=== PATIENT | female | born 1965 | race Caucasian/White ===

== ENCOUNTER 2018-05-17 18:00 | Inpatient (IN) | payer SELFPAY ==
[~2018-05-17] VITALS: Ht 162.6 cm; Wt 59.1 kg
[~2018-05-17 18:00] MED LIST: ADVIL200 MG PO; COREG 3.1253.125 MG; HYDROCODONE-APA1 TAB PO; IBUPROFEN600 MG PO; PREVACID30 MG PO; ULTRAM50 MG PO; XANAX0.25 MG PO
[2018-05-17 19:39] LABS: BASOPHILS 0.6 % (0-2); EOSINOPHILS 1.6 % (0-7); HEMATOCRIT 37.6 % (36.0-48.0); HEMOGLOBIN 12.9 g/dL (12-16); IMMATURE GRANULOCYTES 0.3 % (0-5); LYMPHOCYTES 43.8 % (15-50); MCH 31.5 pg (26.0-34.0); MCHC 34.3 g/dL (31.0-37.0); MCV 91.7 fL (80.0-100.0); MEAN PLATELET VOLUME 9.8 fL (7.4-10.4); MONOCYTES 6.8 % (2-11); NEUTROPHILS 46.9 % (40-80); PLATELET COUNT 256 10x3/uL (130-400); RDW 12.8 % (11.5-14.5)
[2018-05-17 19:47] LABS: ALBUMIN 3.3 g/dL (3.4-5.0); ALKALINE PHOSPHATASE 97 U/L (46-116); ALT (SGPT) 27 U/L (10-68); BILIRUBIN - TOTAL 0.09 mg/dL (0.2-1.3); CALC OSMOLALITY 279 mosm/kg (275-300); CARBON DIOXIDE 23.7 mmol/L (21.0-32.0); CHLORIDE - SERUM 106 mmol/L (98-107); CREATININE - SERUM 0.7 mg/dL (0.6-1.3); GLUCOSE 98 mg/dL (74-106); POTASSIUM - SERUM 3.8 mmol/L (3.5-5.1); PROTEIN - SERUM 6.6 g/dL (6.4-8.2); SODIUM 140 mmol/L (136-145); UREA NITROGEN 16 mg/dL (7-18); eGFR NON AFRICAN AMERICAN > 90 mL/min (90-120)
--- NOTE | 2018-05-17 22:00 | NUR ---
PAIN LEVEL DOWN TO 6 AT THIS TIME. AWAKE AND ALERT, NO DISTRESS.
--- NOTE | 2018-05-17 22:17 | NUR ---
REPORT WAS GIVEN TO DISHA NURSE. PATIENT SITTING UP IN BED WATCHING TV, NO COMPLAINTS.
--- NOTE | 2018-05-17 22:53 | NUR ---
NS STOPPED AT 2250, PATIENT TRANSFERRED TO THE FLOOR.
[2018-05-17 23:38] VITALS: BP 117/57; Ht 162.6 cm; Wt 59.1 kg
[2018-05-18 01:16] VITALS: BP 117/57
[2018-05-18 04:37] VITALS: BP 113/65
[2018-05-18 04:50] LABS: BASOPHILS 0.2 % (0-2); EOSINOPHILS 0 % (0-7); HEMATOCRIT 37.4 % (36.0-48.0); HEMOGLOBIN 12.6 g/dL (12-16); LYMPHOCYTES 16.6 % (15-50); MCH 31.3 pg (26.0-34.0); MCHC 33.7 g/dL (31.0-37.0); MCV 92.8 fL (80.0-100.0); MEAN PLATELET VOLUME 10.1 fL (7.4-10.4); MONOCYTES 0.6 % (2-11); NEUTROPHILS 82.6 % (40-80); PLATELET COUNT 239 10x3/uL (130-400); RBC 4.03 10x6/uL (4.00-5.40); RDW 12.6 % (11.5-14.5)
[2018-05-18 05:09] LABS: CALCIUM 8.3 mg/dL (8.5-10.1); CARBON DIOXIDE 23.5 mmol/L (21.0-32.0); CHLORIDE - SERUM 108 mmol/L (98-107); CREATININE - SERUM 0.6 mg/dL (0.6-1.3); POTASSIUM - SERUM 4.2 mmol/L (3.5-5.1); SODIUM 142 mmol/L (136-145); eGFR NON AFRICAN AMERICAN > 90 mL/min (90-120)
[2018-05-18 05:10] LABS: CALC OSMOLALITY 284 mosm/kg (275-300); GLUCOSE 147 mg/dL (74-106); UREA NITROGEN 10 mg/dL (7-18)
--- NOTE | 2018-05-18 07:47 | NUR ---
PT RESTING IN BED. "SORE" CO OF "ARE THEY GOING TO LET ME EAT REAL FOOD THIS MORNING?" TOLD PT I WOULD NEED TO CHECK WITH MD PRIOR TO UPGRADING DIET. PT STATES, " I WILL SNEAK SOMETHING IF THEY DONT LET ME." NO S/S OF ACUTE DISTRESS. CL IN PLACE.
[2018-05-18 10:39] VITALS: BP 139/70
[2018-05-18 13:03] VITALS: BP 106/64
[2018-05-18] MEDS ORDERED: LEVAQUIN750 MG PO (13:29)
[2018-05-18] MEDS ORDERED: FLAGYL500 MG PO (13:30)
[2018-05-18] MEDS ORDERED: MIRALAX17 GM PO (13:31)
[2018-05-18] MEDS ORDERED: HYDROCODON-ACE1 EAC7 PO (13:31)
[2018-05-18] MEDS ORDERED: NICOTINE TRANSDERM (14:30)
--- NOTE | 2018-05-18 15:08 | NUR ---
DC INSTRUCTIONS AND EDUCATION DONE WITH PT AND . PAPERWORK SIGNED. DC IV WITH TIP IN TACT. FLU SHOT GIVEN PER MD ORDER. NO S/S OF ACUTE DISTRESS. ASSISTED OFF THE FLOOR VIA WC.
== END 2018-05-18 15:33 | disposition home or self-care (01) | DRG 392 ==
LOC: D.ER 18:00 → D.MS 21:54
PROVIDERS: Family Medicine; ADMIT Internal Medicine Nephrology; ATTEND Internal Medicine Nephrology
DX: K57.92 Diverticulitis of intestine, part unspecified, without perforation or abscess without bleeding (principal); M54.6 Pain in thoracic spine; V49.49XA Driver injured in collision with other motor vehicles in traffic accident, initial encounter; M79.18 Myalgia, other site; M25.562 Pain in left knee; Z72.0 Tobacco use

== ENCOUNTER 2019-05-01 09:12 | Day surgery (SDC) | payer OTHER ==
[~2019-05-01] VITALS: Ht 162.6 cm; Wt 54.5 kg
[2019-05-01 09:34] LABS: HEMATOCRIT 42.5 % (36.0-48.0); HEMOGLOBIN 14.6 g/dL (12-16); MCH 31.9 pg (26.0-34.0); MCHC 34.4 g/dL (31.0-37.0); MEAN PLATELET VOLUME 9.2 fL (7.4-10.4); RBC 4.57 10x6/uL (4.00-5.40); RDW 12.8 % (11.5-14.5); WBC 5.3 10x3/uL (4.8-10.8)
[2019-05-01 10:05] VITALS: BP 103/73; Ht 162.6 cm; Wt 54.5 kg
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
--- NOTE | 2019-05-03 17:21 | OP ---
PATIENT NAME: LONNIE ISRAEL MEDICAL RECORD: [id number] :65 LOCATION:D.OPS ADMISSION DATE: SURGEON: WOODY NOBLES MD DATE OF OPERATION: 05/01/2019 PREOPERATIVE DIAGNOSES: 1. Gastroesophageal reflux disease. 2. Diffuse abdominal pain. 3. Irritable bowel syndrome. 4. Diverticulosis. POSTOPERATIVE DIAGNOSES: 1. Gastroesophageal reflux disease. 2. Diffuse abdominal pain. 3. Irritable bowel syndrome. 4. Diverticulosis. 5. Large hiatal hernia. 6. LA grade III distal esophagitis, rule out Ramirez esophagus. 7. Inability to advance the endoscope proximal to the sigmoid colon due to poor anal sphincter tone. 8. One sigmoid colon polyp, 8 mm, sessile. PROCEDURE: 1. Esophagogastroduodenoscopy with antral and distal esophageal biopsies. 2. Flexible sigmoidoscopy with single hot biopsy forceps polypectomy. SURGEON: Woody Nobles MD SHOT PEEN OPERATOR: None. BLOOD LOSS: Minimal. ANESTHESIA: IV sedation. COMPLICATIONS: None. PROCEDURE IN DETAIL: The risks, possible complications, and alternatives to the procedure were explained to the patient. She elects to proceed. The discussion specifically included, but was not limited to, bleeding requiring emergency reoperation, infection, endoscopic perforation, and possible need for additional operative procedure. ENDOSCOPIC COURSE: The patient was conveyed to endoscopy suite electively on 05/01/2019. IV sedation was induced by the anesthesia staff. A bite block was inserted. A gastroscope was inserted into the mouth. It was advanced easily into the hypopharynx. The esophagus was easily intubated as were the stomach and duodenum. Upon withdrawal, retroflexed and angulus views were obtained. Antral biopsies were obtained. Multiple distal esophageal biopsies were obtained at the Z line. The endoscope was then withdrawn under direct vision. The patient was turned 180 degrees and placed in the [place] position. A digital rectal examination was performed. A colonoscope was inserted through the anus. It was advanced with difficulty to the mid to proximal sigmoid colon. The patient had almost no anal sphincter tone. Despite trying to get the buttocks to clinch together around the anus, which was made difficult due to the OPERATIVE REPORT [id number] LONNIE ISRAEL patient's paucity of subcutaneous adipose tissue and then also stuffing a lubricated glove up into the anus to help with the airtight seal, she just would not retain any air and made it dangerous to try to proceed further as I could not insufflate the colon. A single hot biopsy forceps polypectomy was performed. A retroflexed view was obtained in the rectum. I then unretroflexed the scope and removed it under direct vision. I will see the patient in my office in 6-8 weeks. We will review the results of the biopsies then. The patient does admit to some fecal incontinence. I am not sure what the etiology for her very poor anal sphincter tone would be. We are going to schedule an air contrast barium enema for 2-3 weeks. TRANSINT:[id number] Voice Confirmation ID: [id number] DOCUMENT ID: [id number] WOODY NOBLES MD at 1721 CC: TOR FRANCO [id number] DICTATION DATE: 05/01/19 1527 BONUS CLERK: 05/02/19 0541 [facility] 05/01/19 [id number] [place] [address]
== END 2019-05-01 16:20 | disposition home or self-care (01) ==
LOC: D.OPS 09:12
PROVIDERS: Anesthesiology; ATTEND Surgery
DX: K21.9 Gastro-esophageal reflux disease without esophagitis (principal); R10.9 Unspecified abdominal pain; K58.9 Irritable bowel syndrome, unspecified; K57.90 Diverticulosis of intestine, part unspecified, without perforation or abscess without bleeding; K44.9 Diaphragmatic hernia without obstruction or gangrene; K20.9 Esophagitis, unspecified; K63.5 Polyp of colon

== ENCOUNTER → 2019-05-10 08:14 | Outpatient (CLI) | payer OTHER ==
[2019-05-01 10:05] VITALS: BMI 20.6
[~2019-05-10 08:14] MED LIST changes: +FLAGYL500 MG PO; +HYDROCODON-ACE1 EAC7 PO; +LEVAQUIN750 MG PO; +LINZESS72 MCG PO; +MIRALAX17 GM PO; +NICOTINE TRANSDERM
== END | disposition home or self-care (01) ==
LOC: D.RAD 08:14
PROVIDERS: ATTEND Surgery
DX: K58.9 Irritable bowel syndrome, unspecified (principal)

== ENCOUNTER → 2019-05-15 07:42 | Outpatient (CLI) | payer OTHER ==
[2019-05-01 10:05] VITALS: BMI 20.6
== END | disposition home or self-care (01) ==
LOC: D.RAD 07:42
PROVIDERS: ATTEND Surgery
DX: R19.4 Change in bowel habit (principal)